=== PATIENT | female | born 1970 ===

== ENCOUNTER 2017-09-21 16:29 | Emergency (ER) | payer OTHER ==
[2017-09-21 16:39] VITALS: BP 128/72; PULSE 73; RESP 16; TEMP 98.1; O2SAT 98
--- NOTE | 2017-09-21 16:58 | ED PDOC ---
Upper Extremity Pain/Injury Time Seen by Provider: 09/21/17 16:42 Chief Complaint (Nursing): Upper Extremity Problem/Injury Chief Complaint (Provider): right arm pain History Per: Patient History/Exam Limitations: no limitations Onset/Duration Of Symptoms: Days (x3 months) Current Symptoms Are (Timing): Still Present Quality: "Pain" Additional Complaint(s): Nadira Jarvis is a 47 year old female, with a history of carpal tunnel, who presents to the emergency department complaining of wrist pain onset for x3 months. Patient is supposed to follow up with specialist but states pain is too severe which prompted ED visit. She has been taking Motrin for pain which did not help. She denies any other medical complaints. PMD: None provided. Past Medical History Reviewed: Historical Data, Nursing Documentation, Vital Signs Vital Signs: Last Vital Signs Temp 98.1 F 09/21/17 16:31 Pulse 73 09/21/17 16:31 Resp 16 09/21/17 16:31 BP 128/72 09/21/17 16:31 Pulse Ox 98 09/21/17 16:31 - Medical History PMH: Arthritis, Depression, HTN - Surgical History Surgical History: Cholecystectomy - Family History Family History: States: No Known Family Hx - Immunization History Hx Tetanus Toxoid Vaccination: No Hx Influenza Vaccination: No Hx Pneumococcal Vaccination: No - Home Medications Home Medications: Ambulatory Orders Medication Instructions Recorded Ciprofloxacin HCl [Cipro] 500 mg PO BID #20 tab 03/12/15 Naproxen [Naprosyn] 500 mg PO Q12H #20 tab 03/12/15 Cyclobenzaprine [Cyclobenzaprine 10 mg PO BID #14 tab 04/15/15 HCl] Ibuprofen [Motrin] 600 mg PO Q8 #30 tab 04/15/15 traMADol [Ultram] 50 mg PO Q6H PRN #15 tab 09/21/17 - Allergies Allergies/Adverse Reactions: Allergies Allergy/AdvReac Type Severity Reaction Status Date / Time Penicillins Allergy RASH Verified 09/21/17 16:33 Review of Systems ROS Statement: Except As Marked, All Systems Reviewed And Found Negative Musculoskeletal: Positive for: Arm Pain (right ) Physical Exam - Reviewed Nursing Documentation Reviewed: Yes Vital Signs Reviewed: Yes - Physical Exam Appears: Positive for: Non-toxic Head Exam: Positive for: ATRAUMATIC, NORMOCEPHALIC Skin: Positive for: Normal Color, Warm, Dry Eye Exam: Positive for: Normal appearance Neck: Positive for: Painless ROM Respiratory: Negative for: Respiratory Distress Extremity: Positive for: Normal ROM (upper and lower extremities), Other ((+) tinnle, (+) phalen's). Negative for: Deformity, Swelling Neurologic/Psych: Positive for: Alert, Oriented. Negative for: Motor/Sensory Deficits - ECG O2 Sat by Pulse Oximetry: 98 (RA) Pulse Ox Interpretation: Normal Medical Decision Making Medical Decision Making: Time: 16:42 Initial Impression: Carpal tunnel Initial Plan: --Tylenol 325mg tab 650 mg PO --Ultram 50 mg PO Scribe Attestation: Documented by Cedric Grove, acting as a scribe for Seema Rojo PA-C Provider Scribe Attestation: All medical record entries made by the Scribe were at my direction and personally dictated by me. I have reviewed the chart and agree that the record accurately reflects my personal performance of the history, physical exam, medical decision making, and the department course for this patient. I have also personally directed, reviewed, and agree with the discharge instructions and disposition. Disposition - Clinical Impression Clinical Impression: Carpal tunnel syndrome - Patient ED Disposition Is Patient to be Admitted: No Counseled Patient/Family Regarding: Diagnosis, Need For Followup, Rx Given - Disposition Disposition: Routine/Home Disposition Time: 17:25 Condition: STABLE Additional Instructions: Please keep appointment with specialist. Prescriptions: traMADol [Ultram] 50 mg PO Q6H PRN #15 tab PRN Reason: Pain Instructions: Carpal Tunnel Syndrome Forms: [facility] (Dominican) Print Language: BULGARIAN
== END 2017-09-21 17:45 | disposition home or self-care (01) ==
LOC: H.ER 16:29
DX: G56.01 Carpal tunnel syndrome, right upper limb (principal); F32.9 Major depressive disorder, single episode, unspecified; I10 Essential (primary) hypertension; Z88.0 Allergy status to penicillin

== ENCOUNTER 2018-01-26 00:15 | Inpatient (IN) | payer OTHER ==
[2018-01-26] MEDS ORDERED: Sodium Chloride 0.9% 1,000 ML IV STA (00:36)
[2018-01-26 01:38] LABS: BASO % 0.3 % (0.0-2.0); EOS % 0.4 % (0.0-4.0); HEMOGLOBIN 12.7 g/dL (12.0-16.0); LYMPH % 18.2 % (20.0-40.0); MEAN CORPUSCULAR HEMOGLOBIN 29.9 pg (27.0-31.0); MEAN PLATELET VOLUME 9.4 fl (7.2-11.7); MONO # 0.5 K/uL (0.0-0.8); MONO % 4.1 % (0.0-10.0); NEUT # 8.7 K/uL (1.8-7.0); NRBC % 0.1 % (0.0-0.0); RBC 4.23 Mil/uL (3.80-5.20); RED CELL DISTRIBUTION WIDTH 12.4 % (11.5-14.5); WHITE BLOOD COUNT 11.3 K/uL (4.8-10.8)
--- NOTE | 2018-01-26 01:42 | ED PDOC ---
HPI: Abdomen Time Seen by Provider: 01/26/18 00:22 Chief Complaint (Nursing): GI Problem Chief Complaint (Provider): abdominal pain and vomiting History Per: Patient History/Exam Limitations: no limitations Onset/Duration Of Symptoms: Hrs (21:00) Current Symptoms Are (Timing): Still Present Location Of Pain/Discomfort: Epigastric Associated Symptoms: Nausea, Vomiting Additional Complaint(s): Nadira Jarvis is a 47 year old female, with a past medical history of carpal tunnel, who presents to the emergency department complaining of abdominal pain and vomiting onset since 21:00. Patient states she took her Gabapentin this evening and suddenly developed epigastric pain with nausea and vomiting. She usually takes it with food which she did no today. She reports multiple episodes with slight blood-tinge in them. She denies any other medical complaints. PMD: Anitha Anderson Past Medical History Reviewed: Historical Data, Nursing Documentation, Vital Signs Vital Signs: Last Vital Signs Temp 98.9 F 01/26/18 00:29 Pulse 74 01/26/18 00:29 Resp 16 01/26/18 00:29 BP 143/85 01/26/18 00:29 Pulse Ox 98 01/26/18 00:29 - Medical History PMH: Arthritis, Depression, HTN Other PMH: carpal tunnel - Surgical History Surgical History: Cholecystectomy - Family History Family History: States: Unknown Family Hx - Immunization History Hx Tetanus Toxoid Vaccination: No Hx Influenza Vaccination: No Hx Pneumococcal Vaccination: No - Home Medications Home Medications: Ambulatory Orders Medication Instructions Recorded Ciprofloxacin HCl [Cipro] 500 mg PO BID #20 tab 03/12/15 Naproxen [Naprosyn] 500 mg PO Q12H #20 tab 03/12/15 Cyclobenzaprine [Cyclobenzaprine 10 mg PO BID #14 tab 04/15/15 HCl] Ibuprofen [Motrin] 600 mg PO Q8 #30 tab 04/15/15 traMADol [Ultram] 50 mg PO Q6H PRN #15 tab 09/21/17 Ondansetron ODT [Zofran ODT] 4 mg PO Q6H PRN #8 odt 01/26/18 - Allergies Allergies/Adverse Reactions: Allergies Allergy/AdvReac Type Severity Reaction Status Date / Time Penicillins Allergy RASH Verified 09/21/17 16:33 Review of Systems ROS Statement: Except As Marked, All Systems Reviewed And Found Negative Gastrointestinal: Positive for: Nausea, Vomiting, Abdominal Pain (epigastric) Physical Exam - Reviewed Nursing Documentation Reviewed: Yes Vital Signs Reviewed: Yes - Physical Exam Appears: Positive for: Uncomfortable Head Exam: Positive for: ATRAUMATIC, NORMAL INSPECTION, NORMOCEPHALIC Skin: Positive for: Normal Color, Warm, Dry Eye Exam: Positive for: Normal appearance, EOMI, PERRL Neck: Positive for: Painless ROM Cardiovascular/Chest: Positive for: Regular Rate, Rhythm. Negative for: Murmur Respiratory: Positive for: Normal Breath Sounds. Negative for: Respiratory Distress Gastrointestinal/Abdominal: Positive for: Tenderness (epigastric) Back: Positive for: Normal Inspection. Negative for: L CVA Tenderness, R CVA Tenderness, Vertebral Tenderness Extremity: Positive for: Normal ROM (upper and lower extremities). Negative for: Deformity, Swelling Neurologic/Psych: Positive for: Alert, Oriented - Laboratory Results Result Diagrams: 01/26/18 01:08 01/26/18 01:08 - ECG O2 Sat by Pulse Oximetry: 98 (RA) Pulse Ox Interpretation: Normal Medical Decision Making Medical Decision Making: Time: 00:22 Initial Impression: 47 y/o female with epigastric pain, nausea and vomiting. Initial Plan: --EKG --CMP --Lipase --Urine --Urine dipstick --CBC w/ differential --Sodium Chloride 1,000 ml IV 1,000 mls/hr --Pepcid 20 mg IV --Zofran Inj 4 mg IV --Urinalysis --Reevaluation 02:23 -Due to persistent abdominal pain ordered CT abdomen 03:43 Abdomen/Pelvis CT COMMENTS: Enlarged appendix measuring 1.4 cm in its largest transverse dimension. Impacted appendicolith at the base of the appendix. Diffuse thickening and enhancement of the appendix. Adjacent fluid filled small bowel. The liver is of uniform attenuation without mass or defect. There is no intra or extrahepatic biliary ductal dilatation. The spleen is normal. The gallbladder is surgically absent. The pancreas is of normal contour and attenuation characteristics. There is no evidence of adrenal mass. Both kidneys demonstrate prompt and equal nephrograms. The kidneys are normal in size, shape and configuration. There is no evidence of renal or ureteral mass. No renal or ureteral calculi are identified. There is no hydroureter or hydr onephrosis. There is no bowel wall thickening. No evidence for small or large bowel obstruction. There is no evidence of abdominal ascites or lymphadenopathy. Uncomplicated colonic diverticulosis. There is no evidence of intrinsic or extrinsic bladder mass. There is no pelvic ascites or lymphadenopathy. Fat containing umbilical hernia without incarceration. Mild amount of fecal residue in the large bowels. Mild changes of mesenteric panniculitis. Benign chronic. Images of the lung bases show no evidence of pleural or parenchymal mass. There are no pleural effusions. The bony structures are free of lytic or blastic lesions. IMPRESSION: Uncomplicated acute appendicitis. Mild reactive ileus. 04:00 -Spoke with Dr. Ross, resident, and Dr. Johansen, certified surgical tech/first assistant, for admission. Diagnosis of acute appendicitis. Scribe Attestation: Documented by Cedric Grove, acting as a scribe for Zbigniew Glaser MD. Provider Scribe Attestation: All medical record entries made by the Scribe were at my direction and personally dictated by me. I have reviewed the chart and agree that the record accurately reflects my personal performance of the history, physical exam, medi nereida decision making, and the department course for this patient. I have also personally directed, reviewed, and agree with the discharge instructions and disposition. Disposition - Clinical Impression Clinical Impression: Gastritis - Disposition Disposition Time: 04:00 Condition: FAIR
[2018-01-26 01:49] LABS: ALB/GLOB RATIO 1.2 (1.0-2.1); ALBUMIN 4.4 g/dL (3.5-5.0); ALT/SGPT 30 U/L (9-52); AST/SGOT 33 U/L (14-36); BLOOD UREA NITROGEN 13 mg/dl (7-17); CALCIUM 9.6 mg/dL (8.4-10.2); GFR NON-AFRICAN AMERICAN > 60; LIPASE 112 U/L (23-300)
[2018-01-26] MEDS ORDERED: Morphine 4 MG/ML VIAL ONE (02:12)
[2018-01-26 02:13] LABS: SQUAMOUS EPITHIAL 4 /hpf (0-5); URINE BACTERIA RARE (<OCC); URINE BILIRUBIN NEGATIVE (NEGATIVE); URINE BLOOD NEGATIVE (NEGATIVE); URINE CLARITY CLOUDY (Clear); URINE COLOR YELLOW (YELLOW); URINE GLUCOSE (UA) NEG (Normal); URINE LEUKOCYTE ESTERASE NEG Leu/uL (Negative); URINE PROTEIN NEGATIVE (NEGATIVE); URINE UROBILINOGEN 0.2-1.0 mg/dL (0.2-1.0)
[2018-01-26] MEDS ORDERED: Sodium Chloride 0.9% 50 ML IV ONE (02:30)
[2018-01-26] MEDS ORDERED: Iohexol 300 100 ML IJ ONE (02:30)
[2018-01-26] MEDS ORDERED: Ciprofloxacin 400mg/200ml D5W 400 MG/200 ML BAG IV STA (03:52)
[2018-01-26] MEDS ORDERED: metroNIDAZOLE 500mg/100ml NS 100 ML IVPB STA (03:54)
--- NOTE | 2018-01-26 04:10 | CP.PCM.CON ---
<Nicole Johansen - Last Filed: 01/26/18 06:12> History of Present Illness - History of Present Illness History of Present Illness: General surgery consult note for Dr. Judah Johansen, PGY-2 PT S & E at bedside 47F w/PMH sig for HTN consulted for epigastric abdominal pain x 5 hrs. Pt reports acute onset of pain after taking Gabapentin at 11pm on day [employer]. Pain is severe, radiates diffusely, constant. Pain alleviated by pain medication in ED. Admits to nausea, >20 episodes of emesis (clear than bilious with streaks of bright red blood in the later episodes), chills, fatigue. Denies fevers, constipation, diarrhea, changes in urination, back pain, CP, SOB, SCHULTZ, other complaints. In ED, CT ab w/acute uncomplicated appendicitis w/appendicolith. Leuokocytosis of 11.3. Afebrile. PMH: HTN, HPV, carpal tunnel PSH: Cholecystectomy, Foot sx All: PCN (Rash) SH: Denies ETOH, tobacco or illicit drug use FH: Non contributory PMD: The Clinic Review of Systems - Review of Systems All systems: reviewed and no additional remarkable complaints except - Constitutional Constitutional: Chills. absent: Fever, Headache - EENT Nose/Mouth/Throat: absent: Sore Throat - Cardiovascular Cardiovascular: absent: Chest Pain - Gastrointestinal Gastrointestinal: Abdominal Pain, Bloating, Hematemesis (small amount of bright red blood in streaks), Nausea, Vomiting. absent: Change in Bowel Habits, Constipation, Diarrhea, Melena - Genitourinary Genitourinary: absent: Difficulty Urinating, Dysuria, Hematuria - Musculoskeletal Musculoskeletal: absent: Back Pain - Integumentary Integumentary: absent: Rash - Neurological Neurological: Weakness - Psychiatric Psychiatric: absent: Change in Appetite - Endocrine Endocrine: Fatigue Past Patient History - Infectious Disease Hx of Infectious Diseases: None - Past Social History Smoking Status: Never Smoked - CARDIAC Hx Hypertension: Yes - MUSCULOSKELETAL/RHEUMATOLOGICAL Hx Arthritis: Yes - PSYCHIATRIC Hx Depression: Yes - SURGICAL HISTORY Hx Cholecystectomy: Yes - ANESTHESIA Hx Anesthesia: Yes Hx Anesthesia Reactions: No Meds Allergies/Adverse Reactions: Allergies Allergy/AdvReac Type Severity Reaction Status Date / Time Penicillins Allergy RASH Verified 09/21/17 16:33 - Medications Medications: Current Medications Ciprofloxacin (Cipro 400mg/200ml Dsw) 400 mg in 200 mls @ 200 mls/hr IV STAT STA; Protocol Stop: 01/26/18 04:51 Metronidazole (Flagyl 500mg/100ml Ns) 100 mls @ 100 mls/hr IVPB STAT STA; Protocol Stop: 01/26/18 04:53 Ciprofloxacin (Cipro 400mg/200ml Dsw) 400 mg in 200 mls @ 200 mls/hr IVPB Q12 MINDY; Protocol Metronidazole (Flagyl 500mg/100ml Ns) 100 mls @ 100 mls/hr IVPB Q8 MINDY; Protocol Physical Exam - Constitutional Appears: Non-toxic, No Acute Distress - Head Exam Head Exam: ATRAUMATIC, NORMAL INSPECTION, NORMOCEPHALIC - Eye Exam Eye Exam: EOMI, Normal appearance - ENT Exam ENT Exam: Mucous Membranes Moist, Normal Exam - Neck Exam Neck exam: Positive for: Full Rom, Normal Inspection - Respiratory Exam Respiratory Exam: Clear to Auscultation Bilateral, NORMAL BREATHING PATTERN. absent: Rales, Rhonchi, Wheezes, Respiratory Distress - Cardiovascular Exam Cardiovascular Exam: REGULAR RHYTHM, +S1, +S2 - GI/Abdominal Exam GI & Abdominal Exam: Normal Bowel Sounds, Soft, Tenderness (epigastric). a bsent: Distended, Firm, Guarding, Hernia, Rebound, Rigid - Extremities Exam Extremities exam: Positive for: normal inspection. Negative for: pedal edema, tenderness - Neurological Exam Neurological exam: Alert, CN II-XII Intact, Oriented x3 - Psychiatric Exam Psychiatric exam: Normal Affect, Normal Mood - Skin Skin Exam: Dry, Intact, Normal Color, Warm Results - Vital Signs Recent Vital Signs: Last Vital Signs Temp 98.9 F 01/26/18 00:29 Pulse 74 01/26/18 00:29 Resp 16 01/26/18 00:29 BP 143/85 01/26/18 00:29 Pulse Ox 98 01/26/18 04:01 - Labs Result Diagrams: 01/26/18 01:08 01/26/18 01:08 Labs: Laboratory Results - last 24 hr 01/26/18 01/26/18 01/26/18 01:08 01:08 01:40 WBC 11.3 H RBC 4.23 Hgb 12.7 Hct 37.3 MCV 88.0 MCH 29.9 MCHC 34.0 RDW 12.4 Plt Count 214 MPV 9.4 Neut % (Auto) 77.0 H Lymph % (Auto) 18.2 L Gates % (Auto) 4.1 Eos % (Auto) 0.4 Baso % (Auto) 0.3 Neut # (Auto) 8.7 H Lymph # (Auto) 2.0 Gates # (Auto) 0.5 Eos # (Auto) 0.0 Baso # (Auto) 0.0 Sodium 141 Potassium 3.6 Chloride 104 Carbon Dioxide 30 Anion Gap 11 BUN 13 Creatinine 0.6 L Est GFR ( Amer) > 60 Est GFR (Non-Af Amer) > 60 Random Glucose 116 H Calcium 9.6 Total Bilirubin 0.3 AST 33 ALT 30 Alkaline Phosphatase 110 Total Protein 8.1 Albumin 4.4 Globulin 3.7 Albumin/Globulin Ratio 1.2 Lipase 112 Urine Color Yellow Urine Clarity Cloudy Urine pH 7.0 Ur Specific [place] 1.017 Urine Protein Negative Urine Glucose (UA) Neg Urine Ketones Trace Urine Blood Negative Urine Nitrate Negative Urine Bilirubin Negative Urine Urobilinogen 0.2-1.0 Ur Leukocyte Esterase Neg Urine RBC (Auto) 11 H Urine Microscopic WBC 1 Ur Squamous Epith Cells 4 Urine Bacteria Rare Assessment & Plan - Assessment and Plan (Free Text) Assessment: 47F w/Acute appendicitis Plan: Admit to medical service IVF NPO Abx pain control Anti-emetic FU PT/INR, PTT FU CXR test neg Plan for OR today Willl Consent DW Dr. Emir Johansen, PGY-2 - Date & Time Date: 01/26/18 Time: 04:38 <Wilbert Saleem - Last Filed: 01/26/18 11:45> History of Present Illness - History of Present Illness History of Present Illness: Patient was seen and examined at the bedside. Agree with resident's note above. Meds - Medications Medications: Current Medications Ciprofloxacin (Cipro 400mg/200ml Dsw) 400 mg in 200 mls @ 200 mls/hr IVPB Q12@0400,1600 MINDY; Protocol Metronidazole (Flagyl 500mg/100ml Ns) 100 mls @ 100 mls/hr IVPB Q8 MINDY; Protocol Last Admin: 01/26/18 06:44 Dose: 100 mls/hr Lactated Ringer's (Lactated Ringer's) 1,000 mls @ 130 mls/hr IV .[id number] [facility] Last Admin: 01/26/18 04:35 Dose: 130 mls/hr Morphine Sulfate (Morphine) 2 mg IVP Q4 PRN PRN Reason: Pain, moderate (4-7) Morphine Sulfate (Morphine) 4 mg IVP Q4 PRN PRN Reason: Pain, severe (8-10) Last Admin: 01/26/18 07:49 Dose: 4 mg Ondansetron HCl (Zofran Inj) 4 mg IVP Q6 PRN PRN Reason: Nausea/Vomiting Last Admin: 01/26/18 07:56 Dose: 4 mg Physical Exam - GI/Abdominal Exam Additional comments: soft, right sided tenderness, ND, BS+, no rebound, no guarding, well healed scars from prior cholecystectomy Results - Vital Signs Recent Vital Signs: Last Vital Signs Temp 97.7 F 01/26/18 08:11 Pulse 75 01/26/18 08:11 Resp 20 01/26/18 08:11 BP 123/75 01/26/18 08:11 Pulse Ox 100 01/26/18 08:11 - Labs Result Diagrams: 01/26/18 01:08 01/26/18 01:08 Labs: Laboratory Results - last 24 hr 01/26/18 01/26/18 01/26/18 01:08 01:08 01:40 WBC 11.3 H RBC 4.23 Hgb 12.7 Hct 37.3 MCV 88.0 MCH 29.9 MCHC 34.0 RDW 12.4 Plt Count 214 MPV 9.4 Neut % (Auto) 77.0 H Lymph % (Auto) 18.2 L Gates % (Auto) 4.1 Eos % (Auto) 0.4 Baso % (Auto) 0.3 Neut # (Auto) 8.7 H Lymph # (Auto) 2.0 Gates # (Auto) 0.5 Eos # (Auto) 0.0 Baso # (Auto) 0.0 PT INR APTT Sodium 141 Potassium 3.6 Chloride 104 Carbon Dioxide 30 Anion Gap 11 BUN 13 Creatinine 0.6 L Est GFR ( Amer) > 60 Est GFR (Non-Af Amer) > 60 Random Glucose 116 H Lactic Acid Calcium 9.6 Total Bilirubin 0.3 AST 33 ALT 30 Alkaline Phosphatase 110 Total Protein 8.1 Albumin 4.4 Globulin 3.7 Albumin/Globulin Ratio 1.2 Lipase 112 Urine Color Yellow Urine Clarity Cloudy Urine pH 7.0 Ur Specific [place] 1.017 Urine Protein Negative Urine Glucose (UA) Neg Urine Ketones Trace Urine Blood Negative Urine Nitrate Negative Urine Bilirubin Negative Urine Urobilinogen 0.2-1.0 Ur Leukocyte Esterase Neg Urine RBC (Auto) 11 H Urine Microscopic WBC 1 Ur Squamous Epith Cells 4 Urine Bacteria Rare 01/26/18 01/26/18 04:30 04:30 WBC RBC Hgb Hct MCV MCH MCHC RDW Plt Count MPV Neut % (Auto) Lymph % (Auto) Gates % (Auto) Eos % (Auto) Baso % (Auto) Neut # (Auto) Lymph # (Auto) Gates # (Auto) Eos # (Auto) Baso # (Auto) PT 12.6 INR 1.1 APTT 37.0 Sodium Potassium Chloride Carbon Dioxide Anion Gap BUN Creatinine Est GFR ( Amer) Est GFR (Non-Af Amer) Random Glucose Lactic Acid 0.9 Calcium Total Bilirubin AST ALT Alkaline Phosphatase Total Protein Albumin Globulin Albumin/Globulin Ratio Lipase Urine Color Urine Clarity Urine pH Ur Specific [place] Urine Protein Urine Glucose (UA) Urine Ketones Urine Blood Urine Nitrate Urine Bilirubin Urine Urobilinogen Ur Leukocyte Esterase Urine RBC (Auto) Urine Microscopic WBC Ur Squamous Epith Cells Urine Bacteria - Imaging and Cardiology CT scan - abdomen Status: Image reviewed by me, Report reviewed by me
[2018-01-26] MEDS ORDERED: Ciprofloxacin 400mg/200ml D5W 400 MG/200 ML BAG IVPB ONE (04:29)
--- NOTE | 2018-01-26 04:34 | CP.PCM.HP ---
Addendum entered and electronically signed by Claude Mckinney DPM 01/26/18 14:54: 47 yo female seen and evaluated at bedside s/p appendectomy, POD 0. Relatives at bedside are translating. Patient NAD and tolerating liquids. Pain is well controlled with medications. States she has voided. Denies N/V/F/C/SOB. O: vital signs reviewed PE: dressing c/d/i, no significant tenderness or pain A/P: 47 yo female seen and evaluated at bedside s/p appendectomy, POD 0 - continue with pain management, morphine and percocet - PRN zofran - Advance diet as tolerated - encourage ambulation - DVT prophylaxis SCD for now Case discussed with Dr. Harry Mckinney PGY-1 Addendum entered and electronically signed by Josué Garcia DPM 01/26/18 10:48: 47 y/o female was seen and evaluated at bedside this morning. Patient complains of severe pain and nausea at this time. Patient is scheduled for surgery in AM. Pain and nausea were controlled with medication Plan - NPO confirmed, abx cipro, flagyl as allergic to pcn - Surgery schedule as per the surg team - IVF, pain control Original Note: <Sagar Ross - Last Filed: 01/26/18 05:14> History of Present Illness - History of Present Illness History of Present Illness: CC: "masha been throwing up and having abdominal pain all night" 47 y/o female, with a PMHx remarkable for HTN and Carpal tunnel syndrome presented to the ER for evaluation of worsening abdominal pain associated with emesis. Pt reports she started to feel epigastric abdominal pain shortly after taking her Gabapentin. It then worsened, causing her to have about 20 episodes of emesis. Vomiting orginally started off as NBNB but then pt reports she had several blood tinged episodes. Pain is located in the epigastrium with diffuse radiation. She also reports pain in her right mid quadrant. She also reports episodic chills associated with her symptoms. Denies fevers. No other complaints. Denies ETOH abuse. Denies CP/SOB/palpitations, D/C, urinary symptoms, numbness/tingling. PMD: [facility] PMHx: HTN, Carpal tunnel, obesity, Pre-dm Meds: Lisinopril 10mg QD, Gabapentin ALL: PCN (rash) PsurgHx: cholecystectomy Social: denies ETOH/Tobacco/drug abuse FamilyHx: HTN in mother, no hx of DM/CAD/stroke Present on Admission - Present on Admission Any Indicators Present on Admission: No History of DVT/PE: No History of Uncontrolled Diabetes: No Urinary Catheter: No Decubitus Ulcer Present: No Past Patient History - Infectious Disease Hx of Infectious Diseases: None - Past Social History Smoking Status: Never Smoked Alcohol: None Drugs: Denies Home Situation {Lives}: With Family - CARDIAC Hx Hypertension: Yes - MUSCULOSKELETAL/RHEUMATOLOGICAL Hx Arthritis: Yes - PSYCHIATRIC Hx Depression: Yes - SURGICAL HISTORY Hx Cholecystectomy: Yes - ANESTHESIA Hx Anesthesia: Yes Hx Anesthesia Reactions: No Meds Allergies/Adverse Reactions: Allergies Allergy/AdvReac Type Severity Reaction Status Date / Time Penicillins Allergy RASH Verified 09/21/17 16:33 Physical Exam - Constitutional Appears: Non-toxic, No Acute Distress - Head Exam Head Exam: ATRAUMATIC, NORMOCEPHALIC - Eye Exam Eye Exam: EOMI, PERRL. absent: Scleral icterus - ENT Exam ENT Exam: Mucous Membranes Moist - Respiratory Exam Respiratory Exam: Clear to Auscultation Bilateral, NORMAL BREATHING PATTERN. absent: Accessory Muscle Use, Decreased Breath Sounds, Rales, Rhonchi, Wheezes - Cardiovascular Exam Cardiovascular Exam: REGULAR RHYTHM, RRR, +S1, +S2. absent: Irregular Rhythm, JVD, Rubs, Systolic Murmur - GI/Abdominal Exam GI & Abdominal Exam: Normal Bowel Sounds, Soft, Tenderness (epigastric tenderness ). absent: Distended, Firm, Guarding, Rebound, Rigid Additional comments: rovsings negative - Extremities Exam Extremities exam: Positive for: normal capillary refill, normal inspection, pedal pulses present. Negative for: calf tenderness, pedal edema - Neurological Exam Neurological exam: Alert, CN II-XII Intact, Oriented x3 - Psychiatric Exam Psychiatric exam: Normal Affect, Normal Mood - Skin Skin Exam: Dry, Intact, Normal Color, Warm Results - Vital Signs Recent Vital Signs: Last Vital Signs Temp 98.9 F 01/26/18 00:29 Pulse 74 01/26/18 00:29 Resp 16 01/26/18 00:29 BP 143/85 01/26/18 00:29 Pulse Ox 98 10/12/18 04:01 - Labs Result Diagrams: 01/26/18 01:08 01/26/18 01:08 Labs: Laboratory Results - last 24 hr 01/26/18 01/26/18 01/26/18 01:08 01:08 01:40 WBC 11.3 H RBC 4.23 Hgb 12.7 Hct 37.3 MCV 88.0 MCH 29.9 MCHC 34.0 RDW 12.4 Plt Count 214 MPV 9.4 Neut % (Auto) 77.0 H Lymph % (Auto) 18.2 L Wells % (Auto) 4.1 Eos % (Auto) 0.4 Baso % (Auto) 0.3 Neut # (Auto) 8.7 H Lymph # (Auto) 2.0 Wells # (Auto) 0.5 Eos # (Auto) 0.0 Baso # (Auto) 0.0 Sodium 141 Potassium 3.6 Chloride 104 Carbon Dioxide 30 Anion Gap 11 BUN 13 Creatinine 0.6 L Est GFR ( Amer) > 60 Est GFR (Non-Af Amer) > 60 Random Glucose 116 H Calcium 9.6 Total Bilirubin 0.3 AST 33 ALT 30 Alkaline Phosphatase 110 Total Protein 8.1 Albumin 4.4 Globulin 3.7 Albumin/Globulin Ratio 1.2 Lipase 112 Urine Color Yellow Urine Clarity Cloudy Urine pH 7.0 Ur Specific [place] 1.017 Urine Protein Negative Urine Glucose (UA) Neg Urine Ketones Trace Urine Blood Negative Urine Nitrate Negative Urine Bilirubin Negative Urine Urobilinogen 0.2-1.0 Ur Leukocyte Esterase Neg Urine RBC (Auto) 11 H Urine Microscopic WBC 1 Ur Squamous Epith Cells 4 Urine Bacteria Rare Assessment & Plan - Assessment and Plan (Free Text) Assessment: 47 y/o female with PMHx of HTN and carpal tunnel admitted for acute appendicitis. Plan: 1) Acute Appendicitis -abd/pelvis CT w IV contrast: Uncomplicated acute appendicitis. Mild reactive ileus. -Afebrile -cbc:11.3>12.7/32.3<214 -lipase 112 -CMP wnl -coags pending -CXR no active disease -seen by surgery, plan for appendectomy -NPO -pain control as ordered -zofran PRN nausea -cipro/flagyl -LR @ 130mls/hr 2) HTN -controlled -monitor 3) Propylaxis -SCDs 4) Diet -NPO 5) Code Status -full code <Neal Milner P - Last Filed: 01/26/18 06:45> Results - Vital Signs Recent Vital Signs: Last Vital Signs Temp 97.8 F 01/26/18 06:07 Pulse 70 01/26/18 06:07 Resp 19 01/26/18 06:07 BP 123/74 01/26/18 06:07 Pulse Ox 97 01/26/18 06:07 - Labs Result Diagrams: 01/26/18 01:08 01/26/18 01:08 Labs: Laboratory Results - last 24 hr 01/26/18 01/26/18 01/26/18 01:08 01:08 01:40 WBC 11.3 H RBC 4.23 Hgb 12.7 Hct 37.3 MCV 88.0 MCH 29.9 MCHC 34.0 RDW 12.4 Plt Count 214 MPV 9.4 Neut % (Auto) 77.0 H Lymph % (Auto) 18.2 L Wells % (Auto) 4.1 Eos % (Auto) 0.4 Baso % (Auto) 0.3 Neut # (Auto) 8.7 H Lymph # (Auto) 2.0 Wells # (Auto) 0.5 Eos # (Auto) 0.0 Baso # (Auto) 0.0 PT INR APTT Sodium 141 Potassium 3.6 Chloride 104 Carbon Dioxide 30 Anion Gap 11 BUN 13 Creatinine 0.6 L Est GFR ( Amer) > 60 Est GFR (Non-Af Amer) > 60 Random Glucose 116 H Lactic Acid Calcium 9.6 Total Bilirubin 0.3 AST 33 ALT 30 Alkaline Phosphatase 110 Total Protein 8.1 Albumin 4.4 Globulin 3.7 Albumin/Globulin Ratio 1.2 Lipase 112 Urine Color Yellow Urine Clarity Cloudy Urine pH 7.0 Ur Specific [place] 1.017 Urine Protein Negative Urine Glucose (UA) Neg Urine Ketones Trace Urine Blood Negative Urine Nitrate Negative Urine Bilirubin Negative Urine Urobilinogen 0.2-1.0 Ur Leukocyte Esterase Neg Urine RBC (Auto) 11 H Urine Microscopic WBC 1 Ur Squamous Epith Cells 4 Urine Bacteria Rare 01/26/18 01/26/18 04:30 04:30 WBC RBC Hgb Hct MCV MCH MCHC RDW Plt Count MPV Neut % (Auto) Lymph % (Auto) Wells % (Auto) Eos % (Auto) Baso % (Auto) Neut # (Auto) Lymph # (Auto) Wells # (Auto) Eos # (Auto) Baso # (Auto) PT 12.6 INR 1.1 APTT 37.0 Sodium Potassium Chloride Carbon Dioxide Anion Gap BUN Creatinine Est GFR ( Amer) Est GFR (Non-Af Amer) Random Glucose Lactic Acid 0.9 Calcium Total Bilirubin AST ALT Alkaline Phosphatase Total Protein Albumin Globulin Albumin/Globulin Ratio Lipase Urine Color Urine Clarity Urine pH Ur Specific [place] Urine Protein Urine Glucose (UA) Urine Ketones Urine Blood Urine Nitrate Urine Bilirubin Urine Urobilinogen Ur Leukocyte Esterase Urine RBC (Auto) Urine Microscopic WBC Ur Squamous Epith Cells Urine Bacteria Attending/Attestation - Attestation I have personally seen and examined this patient.: Yes I have fully participated in the care of the patient.: Yes I have reviewed all pertinent clinical information: Yes Notes (Text): Assessment * Presented with intractable vomiting x1 day, epigastric pain, on exam tender in right mid abdomen corresponding to location of the appendix on CT where it is seen dilated 1.4 cm with appeidicolith Plan * NPO, abx cipro, flagyl as allergic to pcn * Surgery schedule as per the surg team * IVF, pain control * See orders for detail.
[2018-01-26] MEDS: Lactated Ringer's 1,000 ML IV SCH ×2 (04:35→12:55)
[2018-01-26 04:55] LABS: INR 1.1; PROTHROMBIN TIME 12.6 Seconds (9.8-13.1)
[2018-01-26] MEDS: metroNIDAZOLE 500mg/100ml NS 100 ML IVPB SCH ×2 (06:44→14:18)
--- NOTE | 2018-01-26 08:16 | RAD ---
Date of service: 01/26/2018 PROCEDURE: CHEST RADIOGRAPH, 1 VIEW HISTORY: evaluation COMPARISON: Chest radiographs 09/18/2011. FINDINGS: LUNGS: No interval pulmonary disease appreciated bilaterally. PLEURA: No pneumothorax or pleural fluid seen. CARDIOVASCULAR: Stable borderline cardiomegaly. No pulmonary vascular congestion identified. OSSEOUS STRUCTURES: No significant abnormalities. VISUALIZED UPPER ABDOMEN: Normal. OTHER FINDINGS: None. IMPRESSION: No interval acute cardiopulmonary disease appreciated. Borderline cardiomegaly without pulmonary vascular congestion reiterated.
[2018-01-26] MEDS ORDERED: HYDROmorphone 0.5 mg/0.5 ml ISec IVP ONE (09:35)
--- NOTE | 2018-01-26 10:19 | CARD ---
APPROVED REPORT Date of service: 01/26/2018 EKG Measurement Heart [id number] <Conclusion> Normal sinus rhythm Low voltage QRS Abnormal ECG
[2018-01-26] MEDS ORDERED: Midazolam 2 MG/2 ML VIAL ONE (10:27)
[2018-01-26] MEDS ORDERED: Rocuronium 10 mg/ml (5 ml) ONE (10:27)
[2018-01-26] MEDS ORDERED: Propofol 10 mg/ml Inj (20 ML) ONE (10:27)
[2018-01-26] MEDS ORDERED: Succinylcholine 200 mg/10 ml Inj IV ONE (10:27)
[2018-01-26] MEDS ORDERED: Lidocaine 4% (Laryng-O-Jet) Kit MM ONE (10:28)
[2018-01-26] MEDS ORDERED: Bupivacaine HCl 0.5% PF (30 ml) Inj ONE (10:35)
--- NOTE | 2018-01-26 10:36 | CT ---
Date of service: 01/26/2018 PROCEDURE: CT Abdomen and Pelvis with contrast HISTORY: abd pain COMPARISON: None. TECHNIQUE: Contrast dose: 95 mL Omnipaque 300 Radiation dose: Total exam DLP = 822.78 mGy-cm. This CT exam was performed using one or more of the following dose reduction techniques: Automated exposure control, adjustment of the mA and/or kV according to patient size, and/or use of iterative reconstruction technique. FINDINGS: LOWER THORAX: Unremarkable. LIVER: Unremarkable. No gross lesion or ductal dilatation. GALLBLADDER AND BILE DUCTS: Status post cholecystectomy PANCREAS: Unremarkable. No gross lesion or ductal dilatation. SPLEEN: Unremarkable. ADRENALS: Unremarkable. No mass. KIDNEYS AND URETERS: Unremarkable. No hydronephrosis. No solid mass. VASCULATURE: Unremarkable. No aortic aneurysm. BOWEL: Unremarkable. No obstruction. No gross mural thickening. APPENDIX: Distended and fluid-filled. Diameter approximately 14 mm. Two appendicoliths identified within the lumen of the appendix. Periappendiceal inflammatory change. Consistent with acute appendicitis. No periappendiceal abscess. No free air. PERITONEUM: Unremarkable. No free fluid. No free air. LYMPH NODES: No retroperitoneal or pelvic lymphadenopathy. There are shotty subcentimeter mesenteric lymph nodes as well as small nodes medial to the cecum and ascending colon. In addition, there is circumscribed hazy increased attenuation of the small bowel mesenteric fat consistent with nonspecific mesenteric panniculitis. BLADDER: Nondistended REPRODUCTIVE: Normal uterus BONES: No acute fracture. OTHER FINDINGS: None. IMPRESSION: Acute appendicitis. No periappendiceal abscess or free air. Nonspecific mesenteric panniculitis. Status post cholecystectomy. The preliminary findings for this examination were reported by [facility] at 3:43 a.m. on 01/26/2018. There is concurrence of this report with the preliminary findings.
[2018-01-26] MEDS ORDERED: Lactated Ringer's 1,000 ML IV ONE (10:40)
[2018-01-26] MEDS ORDERED: Neostigmine 1:1000 (1 mg/ml) Inj ONE (11:24)
[2018-01-26] MEDS ORDERED: Lactated Ringer's 500 ML IV ONE (11:30)
--- NOTE | 2018-01-26 11:55 | PCM.SURG1 ---
Surgeon's Initial Post Op Note - Surgeon's Notes Surgeon: Harper Trust Clerk: Satish PGY4 Type of Anesthesia: General Endo, Local Pre-Operative Diagnosis: Appendicitis Operative Findings: Acutely inflamed appendix Post-Operative Diagnosis: same Operation Performed: laparoscopic appendectomy Specimen/Specimens Removed: appendix Estimated Blood Loss: EBL {In ML}: 5 Blood Products Given: N/A Drains Used: No Drains Post-Op Condition: Good Date of Surgery/Procedure: 01/26/18 Time of Surgery/Procedure: 11:55
[2018-01-26] MEDS ORDERED: Oxycodone/Acetaminophen 5/325 mg Tab PO PRN (11:57)
--- NOTE | 2018-01-26 15:55 | PQF ---
PROVIDER RESPONSE TEXT: Mild reactive Ileus , clinically insignificant REVIEWER QUERY TEXT: Clinical Significance The diagnosis documented below requires documentation to state the clinical significance: Of Mild lai ctive ileus. -- Clinically insignificant (do not code the diagnosis ) -- Clinically significant,( code the diagnosis ) why it is clinically significant -- Unable to determine clinical significance -- Other, please specify The patient's Clinical Indicators include: Admitted with abdominal pain, vomiting. Diagnosed with acute appendicitis Official CT Abdomen: Acute appendicitis. No periappendiceal abscess or free air. Nonspecific mesenter ic panniculitis. Status post cholecystectomy. Rx: IVAB, Appendectomy Query created by: Gabriella Soliz on 01/26/2018 1:41 PM Electronically signed by: 01/26/2018 3:52 PM
[2018-01-26] MEDS: Ciprofloxacin 400mg/200ml D5W 400 MG/200 ML BAG IVPB SCH (17:14)
[2018-01-26] MEDS ORDERED: Docusate-Senna 50 mg-8.6 mg Tab PO SCH (22:00)
--- NOTE | 2018-01-26 22:46 | OP ---
PROCEDURE DATE: 01/26/2018 PREOPERATIVE DIAGNOSIS: Acute appendicitis. POSTOPERATIVE DIAGNOSIS: Acute appendicitis. PROCEDURE: Laparoscopic appendectomy. SURGEON: Wilbert Saleem MD SCRAP HANDLER: Willian , vice president of marketing. ANESTHESIOLOGIST: Onofre Menard MD ANESTHESIA: General endotracheal intubation. INTRAVENOUS FLUIDS: Crystalloids. ESTIMATED BLOOD LOSS: 5 mL. INTRAOPERATIVE FINDINGS: Acute appendicitis. SPECIMEN: Appendix. BRIEF HISTORY: Ms. Jarvis is a pleasant 47-year-old female who came to the hospital complaining of right-sided abdominal pain and upon further investigation and a CAT scan, the patient was found to have acute appendicitis. All the risks and benefits of the procedure were explained to the patient. With the patient having a full understanding of all the risks and benefits involved, informed consent was obtained and the patient was taken to the operating room for the above stated procedure. DESCRIPTION OF PROCEDURE: The patient was brought into the operating room and placed supine on the operating table. Bilateral Flowtron boots were applied to the patient's lower extremities. After successful induction of anesthesia and successful endotracheal intubation by the anesthesia team, Burgos catheter was inserted into the patient's urinary bladder. Subsequent to that, the patient's abdomen was prepped with ChloraPrep stick and draped in a standard surgical fashion. Prior to the beginning of the procedure, a time-out was called in the room and everyone in the room were in agreement. Using Veress needle, the patient's abdomen was entered at the umbilicus, and pneumoperitoneum was achieved with good opening pressures. Once this was accomplished, using an #11 blade scalpel knife, approximately 5-mm incision was made in the umbilicus in a longitudinal fashion. Subsequent to that, a 5-mm trocar was introduced into the patient's abdomen. At this point in time, a 5-mm 0-degree scope was introduced into the patient's abdomen. Then, attention was turned to the lower mid abdomen. Using 11-blade scalpel knife, approximately 5-mm incision was made in the transverse fashion. Subsequent to that, another 5-mm trocar was introduced into the patient's abdomen. Then, attention was turned to the left lower quadrant of the patient's abdomen. Using 11-blade scalpel knife, approximately 1-cm incision was made in the transverse fashion. Subsequent to that, a 12-mm trocar was introduced into the abdomen. At this point in time, using two [employer] graspers, appendix was mobilized and subsequent to that using [place] dissector, a window was created between the appendix and the mesoappendix. Once this was accomplished, appendix was taken right at the base with blue load and 45-mm Endo ADIS stapler. Once the appendix was transected, mesoappendix was taken with a laguerre load 45-mm Endo ADIS stapler and the staple was fired as well. At this point in time, the appendix was completely was freed up, EndoCatch bag was introduced into the patient's abdomen. Appendix was placed inside of the bag, and the bag was closed. At this point in time, staple line was inspected for hemostasis. Hemostasis was confirmed. So, a 12-mm trocar together with EndoCatch bag and appendix were removed from the patient's abdomen and passed off to the [facility] as a specimen. Fascial layer of the 12-mm trocar site was closed with two interrupted 0 Vicryl suture on UR-5 needle. Subsequent to that, the patient's abdomen was fully desufflated. The rest of the trocars were removed from the patient's abdomen, and skin was closed with 4-0 Monocryl suture in a running subcuticular fashion. At the end of the procedure, incision sites were infiltrated with Marcaine local anesthetic. The patient's abdomen was washed and dried, and Dermabond was applied to the site of the incisions. Burgos catheter was removed from the patient's urinary bladder. The patient was successfully extubated by the anesthesia team, transferred to the stretcher and taken to the recovery room in a stable condition. At the end of the procedure, all instrument counts, needles, and sponges were correct. Wilbert Saleem MD
[2018-01-27] MEDS: metroNIDAZOLE 500mg/100ml NS 100 ML IVPB SCH ×2 (00:22→08:01)
[2018-01-27] MEDS: Lactated Ringer's 1,000 ML IV SCH ×2 (00:23→03:00)
[2018-01-27] MEDS: Ciprofloxacin 400mg/200ml D5W 400 MG/200 ML BAG IVPB SCH (04:21)
[2018-01-27 06:55] LABS: HEMOGLOBIN 10.8 g/dL (12.0-16.0); MEAN CELL VOLUME 88.4 fl (81.0-99.0); MEAN CORPUSCULAR HEMOGLOBIN 29.9 pg (27.0-31.0); MEAN CORPUSCULAR HGB CONC 33.8 g/dL (33.0-37.0); RBC 3.62 Mil/uL (3.80-5.20); RED CELL DISTRIBUTION WIDTH 12.3 % (11.5-14.5); WHITE BLOOD COUNT 7.1 K/uL (4.8-10.8)
[2018-01-27 08:03] VITALS: BP 110/71; PULSE 74; RESP 20; TEMP 98.5; O2SAT 95
--- NOTE | 2018-01-27 08:42 | CP.PCM.PN ---
Subjective - Date & Time of Evaluation Date of Evaluation: 01/27/18 Time of Evaluation: 08:37 - Subjective Subjective: Surgery: Dr. Saleem Pt seen and examined. Resting comfortably in bed. Pain controlled. Tolerating diet. Mild nausea, no vomiting Objective - Vital Signs/Intake and Output Vital Signs (last 24 hours): Temp Pulse Resp BP Pulse Ox 98.5 F 74 20 110/71 95 01/27/18 08:02 01/27/18 08:06 01/27/18 08:02 01/27/18 08:06 01/27/18 08:02 - Medications Medications: Current Medications Gabapentin (Neurontin) 300 mg PO TID [facility] Last Admin: 01/27/18 08:02 Dose: 300 mg Ciprofloxacin (Cipro 400mg/200ml Dsw) 400 mg in 200 mls @ 200 mls/hr IVPB Q12@0400,1600 [facility]; Protocol Last Admin: 01/27/18 04:21 Dose: 200 mls/hr Metronidazole (Flagyl 500mg/100ml Ns) 100 mls @ 100 mls/hr IVPB Q8 [facility]; Protocol Last Admin: 01/27/18 08:01 Dose: 100 mls/hr Lactated Ringer's (Lactated Ringer's) 1,000 mls @ 130 mls/hr IV .[id number] [facility] Last Admin: 01/27/18 03:00 Dose: 130 mls/hr Lisinopril (Zestril) 10 mg PO DAILY [facility] Last Admin: 01/27/18 08:06 Dose: 10 mg Morphine Sulfate (Morphine) 4 mg IVP Q4 PRN PRN Reason: Pain, severe (8-10) Last Admin: 01/27/18 06:42 Dose: 4 mg Ondansetron HCl (Zofran Inj) 4 mg IVP Q6 PRN PRN Reason: Nausea/Vomiting Last Admin: 01/26/18 07:56 Dose: 4 mg Oxycodone/Acetaminophen (Percocet 5/325 Mg Tab) 1 tab PO Q4 PRN PRN Reason: Pain, moderate (4-7) Stop: 01/29/18 11:58 Senna/Docusate Sodium (Senokot S 50 Mg-8.6 Mg) 1 tab PO HS [facility] Last Admin: 01/26/18 21:11 Dose: 1 tab - Labs Labs: 01/27/18 05:30 01/26/18 01:08 PT 12.6 Seconds (9.8-13.1) 01/26/18 04:30 INR 1.1 01/26/18 04:30 APTT 37.0 Seconds (25.6-37.1) 01/26/18 04:30 - Constitutional Appears: Non-toxic, No Acute Distress - Head Exam Head Exam: ATRAUMATIC, NORMOCEPHALIC - Eye Exam Eye Exam: EOMI - ENT Exam ENT Exam: Mucous Membranes Moist - Neck Exam Neck Exam: Full ROM - Respiratory Exam Respiratory Exam: NORMAL BREATHING PATTERN. absent: Accessory Muscle Use, Respiratory Distress - GI/Abdominal Exam GI & Abdominal Exam: Soft. absent: Distended, Firm, Guarding, Rigid, Tenderness, Rebound Additional comments: cliff-incisional tenderness - Extremities Exam Extremities Exam: absent: Calf Tenderness, Pedal Edema - Neurological Exam Neurological Exam: Alert, Awake, Oriented x3 - Psychiatric Exam Psychiatric exam: Normal Affect, Normal Mood Assessment and Plan - Assessment and Plan (Free Text) Assessment: 47F s/p lap appy POD#1 -Pain controlled -Tolerating diet -Likely D/C later today -Follow up in office in 1-2 weeks -will d/w attending Zemaitis PGY4
--- NOTE | 2018-01-27 09:47 | CP.PCM.DIS ---
Provider - Provider Date of Admission: 01/26/18 03:50 Attending physician: Neal Milner MD Primary care physician: Anitha Marlow Consults: surgery consult Time Spent in preparation of Discharge (in minutes): 15 Hospital Course - Lab Results Lab Results: Micro Results 01/26/18 04:30 Blood Blood Culture - Preliminary NO GROWTH AFTER 24 HOURS 01/26/18 04:10 Blood Blood Culture - Preliminary NO GROWTH AFTER 24 HOURS Most Recent Lab Values WBC 7.1 K/uL (4.8-10.8) 01/27/18 05:30 RBC 3.62 Mil/uL (3.80-5.20) L 01/27/18 05:30 Hgb 10.8 g/dL (12.0-16.0) L 01/27/18 05:30 Hct 32.0 % (34.0-47.0) L 01/27/18 05:30 MCV 88.4 fl (81.0-99.0) 01/27/18 05:30 MCH 29.9 pg (27.0-31.0) 01/27/18 05:30 MCHC 33.8 g/dL (33.0-37.0) 01/27/18 05:30 RDW 12.3 % (11.5-14.5) 01/27/18 05:30 Plt Count 165 K/uL (130-400) 01/27/18 05:30 MPV 9.4 fl (7.2-11.7) 01/26/18 01:08 Neut % (Auto) 77.0 % (50.0-75.0) H 01/26/18 01:08 Lymph % (Auto) 18.2 % (20.0-40.0) L 01/26/18 01:08 [place] % (Auto) 4.1 % (0.0-10.0) 01/26/18 01:08 Eos % (Auto) 0.4 % (0.0-4.0) 01/26/18 01:08 Baso % (Auto) 0.3 % (0.0-2.0) 01/26/18 01:08 Neut # (Auto) 8.7 K/uL (1.8-7.0) H 01/26/18 01:08 Lymph # (Auto) 2.0 K/uL (1.0-4.3) 01/26/18 01:08 [place] # (Auto) 0.5 K/uL (0.0-0.8) 01/26/18 01:08 Eos # (Auto) 0.0 K/uL (0.0-0.7) 01/26/18 01:08 Baso # (Auto) 0.0 K/uL (0.0-0.2) 01/26/18 01:08 PT 12.6 Seconds (9.8-13.1) 01/26/18 04:30 INR 1.1 01/26/18 04:30 APTT 37.0 Seconds (25.6-37.1) 01/26/18 04:30 Sodium 141 mmol/l (132-148) 01/26/18 01:08 Potassium 3.6 MMOL/L (3.6-5.0) 01/26/18 01:08 Chloride 104 mmol/L (98-107) 01/26/18 01:08 Carbon Dioxide 30 mmol/L (22-30) 01/26/18 01:08 Anion Gap 11 (10-20) 01/26/18 01:08 BUN 13 mg/dl (7-17) 01/26/18 01:08 Creatinine 0.6 mg/dl (0.7-1.2) L 01/26/18 01:08 Est GFR ( Amer) > 60 01/26/18 01:08 Est GFR (Non-Af Amer) > 60 01/26/18 01:08 Random Glucose 116 mg/dL (65-105) H 01/26/18 01:08 Lactic Acid 0.9 MMOL/L (0.7-2.1) 01/26/18 04:30 Calcium 9.6 mg/dL (8.4-10.2) 01/26/18 01:08 Total Bilirubin 0.3 mg/dl (0.2-1.3) 01/26/18 01:08 AST 33 U/L (14-36) 01/26/18 01:08 ALT 30 U/L (9-52) 01/26/18 01:08 Alkaline Phosphatase 110 U/L (38-126) 01/26/18 01:08 Total Protein 8.1 G/DL (6.3-8.2) 01/26/18 01:08 Albumin 4.4 g/dL (3.5-5.0) 01/26/18 01:08 Globulin 3.7 gm/dL (2.2-3.9) 01/26/18 01:08 Albumin/Globulin Ratio 1.2 (1.0-2.1) 01/26/18 01:08 Lipase 112 U/L (23-300) 01/26/18 01:08 Urine Color Yellow (YELLOW) 01/26/18 01:40 Urine Clarity Cloudy (Clear) 01/26/18 01:40 Urine pH 7.0 (5.0-8.0) 01/26/18 01:40 Ur Specific [place] 1.017 (1.003-1.030) 01/26/18 01:40 Urine Protein Negative mg/dL (NEGATIVE) 01/26/18 01:40 Urine Glucose (UA) Neg mg/dL (Normal) 01/26/18 01:40 Urine Ketones Trace mg/dL (NEGATIVE) 01/26/18 01:40 Urine Blood Negative (NEGATIVE) 01/26/18 01:40 Urine Nitrate Negative (NEGATIVE) 01/26/18 01:40 Urine Bilirubin Negative (NEGATIVE) 01/26/18 01:40 Urine Urobilinogen 0.2-1.0 mg/dL (0.2-1.0) 01/26/18 01:40 Ur Leukocyte Esterase Neg [place]/uL (Negative) 01/26/18 01:40 Urine RBC (Auto) 11 /hpf (0-3) H 01/26/18 01:40 Urine Microscopic WBC 1 /hpf (0-5) 01/26/18 01:40 Ur Squamous Epith Cells 4 /hpf (0-5) 01/26/18 01:40 Urine Bacteria Rare (<OCC) 01/26/18 01:40 - Hospital Course Hospital Course: 47 y/o female with PMH HTN , carpal tunnel presented with RLQ abdominal pain . Ct abdomen showed acute appendicitis. She was started on Cipro and Flagyl IV and surgery consulted . Underwent laparascopic appendectomy that showed inflamed appendicitis. Post op doing well, pain is controlled, tolerating diet , voiding freely Will d/c home on PO cipro and flagyl for 5 days Percoset PRN for severe pain counselled on Narcotics sedative effect and to avoid driving under their influence Discharge Exam - Head Exam Head Exam: ATRAUMATIC, NORMOCEPHALIC - Eye Exam Eye Exam: EOMI, Normal appearance, PERRL Pupil Exam: NORMAL ACCOMODATION - ENT Exam ENT Exam: Mucous Membranes Moist, Normal Exam - Neck Exam Neck exam: Full Rom, Normal Inspection - Respiratory Exam Respiratory Exam: Clear to PA & Lateral, NORMAL BREATHING PATTERN. absent: Rales, Rhonchi, Wheezes - GI/Abdominal Exam GI & Abdominal Exam: Normal Bowel Sounds, Soft. absent: Guarding, Rebound, Tenderness - Rectal Exam Rectal Exam: Deferred - Extremities Exam Extremities exam: normal capillary refill, normal inspection, pedal pulses present - Back Exam Back exam: NORMAL INSPECTION - Neurological Exam Neurological exam: Alert, CN II-XII Intact, Oriented x3, Reflexes Normal - Psychiatric Exam Psychiatric exam: Normal Affect, Normal Mood - Skin Skin Exam: Dry, Intact, Normal Color, Warm Discharge Plan - Discharge Medications Prescriptions: Ciprofloxacin HCl [Cipro] 500 mg PO Q12 #10 tab Metronidazole [Flagyl] 500 mg PO Q8 #15 tab oxyCODONE/Acetaminophen [Percocet 5/325 mg Tab] 1 tab PO Q6 PRN #15 tab PRN Reason: Pain, Severe (8-10) - Follow Up Plan Condition: STABLE Disposition: HOME/ ROUTINE Patient education suggested?: Yes Instructions: Appendectomy, Laparoscopic Surgery (DC) Referrals: [facility] [Outside] Asael Field MD [Staff Provider] -
== END 2018-01-27 10:55 | disposition home or self-care (01) | DRG 883 ==
LOC: H.ER 00:15 → H.ERHOLD 03:50 → H.MEDSURG1 05:29
PROVIDERS: ADMIT Internal Medicine; ATTEND Internal Medicine
PROC: 0DTJ4ZZ Resection of Appendix, Percutaneous Endoscopic Approach (ICD-10-PCS; principal; 2018-01-26 10:30)
DX: K35.80 Unspecified acute appendicitis (principal); K56.7 Ileus, unspecified; I10 Essential (primary) hypertension; K38.1 Appendicular concretions; Z82.49 Family history of ischemic heart disease and other diseases of the circulatory system; E66.9 Obesity, unspecified; F32.9 Major depressive disorder, single episode, unspecified; G56.00 Carpal tunnel syndrome, unspecified upper limb; M19.90 Unspecified osteoarthritis, unspecified site; R73.03 Prediabetes